=== PATIENT | male | born 1970 | race Caucasian/White ===

== ENCOUNTER 2017-03-23 11:50 | Day surgery (SDC) | payer OTHER ==
[2017-03-22 12:04] VITALS: BMI 28.7
--- NOTE | 2017-03-23 09:23 | HP ---
History & Physical Update - History History: No Change - Physical Physical: No Change - Assessment Assessment: No Change - Plan Plan: No Change (Incarcerated ventral hernia. Repair of incarcerated ventral hernia, laparoscopic/open with mesh. Procedure is explained , with risks, of recurrence, infection , postoperative pain, bleeding etc. All questions answered. Consent obtained.)
[2017-03-23] MEDS ORDERED: MIDAZOLAM HCL 2 MG/2 ML SINGLE DOSE VIAL ONE ×2 (14:06→14:35)
[2017-03-23] MEDS ORDERED: PROPOFOL 20 ML ONE (14:35)
[2017-03-23] MEDS ORDERED: ceFAZolin SODIUM 1 GM VIAL IVPB ONE (15:15)
[2017-03-23] MEDS ORDERED: DESFLURANE GAS 240 ML BOTTLE IH ONE (15:51)
[2017-03-23] MEDS ORDERED: ROCURONIUM BROMIDE 50 MG/5 ML VIAL ONE (15:54)
[2017-03-23] MEDS ORDERED: HYDROmorphone HCL/PF 1 MG/ML VIAL (FOR PYXIS CHARGING ONLY) ONE ×2 (16:14→16:54)
[2017-03-23] MEDS ORDERED: DEXAMETHASONE SOD PHOSPHATE 4 MG/1 ML VIAL ONE (16:34)
[2017-03-23] MEDS ORDERED: NEOSTIGMINE METHYLSULFATE 0.5 MG/ML - 10 ML MDV ONE (16:34)
[2017-03-23] MEDS ORDERED: GLYCOPYRROLATE 0.2 MG/1 ML VIAL ONE (16:34)
[2017-03-23] MEDS ORDERED: KETOROLAC TROMETHAMINE 30 MG/1 ML VIAL ONE (16:34)
[2017-03-23] MEDS ORDERED: BUPIVACAINE HCL/PF 0.5% (5MG/ML) 10 ML VIAL IJ ONE (16:45)
--- NOTE | 2017-03-23 16:57 | OP ---
Operative Note - Note: Operative Date: 03/23/17 Pre-Operative Diagnosis: Incarcerated ventral hernia. Operation: Laparoscopic repair of incarcerated ventral hernia with mesh. Findings: Large defect , on anterior abdominal wall with incarcerated omentum, A 6inchx 8 inch , ventralite with positioning system was used to repair. Post-Operative Diagnosis: Same as Pre-op Surgeon: Isaac Bullock Manager Of Merchandising: Roberta Mckeon Anesthesia: General Estimated Blood Loss (mls): 5 Operative Report Dictated: Yes
[2017-03-23] MEDS ORDERED: oxyCODONE HCL 5 MG TABLET PO PRN (17:03)
[2017-03-23] MEDS ORDERED: PROMETHAZINE HCL 25 MG/1 ML VIAL IVPUSH PRN (17:03)
[2017-03-23] MEDS ORDERED: LACTATED RINGERS SOLUTION 1,000 ML IV SCH (17:15)
[2017-03-23] MEDS ORDERED: oxyCODONE HCL 5 MG TABLET ONE (18:30)
[2017-03-23 19:37] VITALS: PULSE 68; TEMP 98
[2017-03-23 19:38] VITALS: BP 141/79
--- NOTE | 2017-03-24 13:58 | OP ---
DATE OF OPERATION: 03/23/2017 PREOPERATIVE DIAGNOSIS: Incarcerated ventral hernia. POSTOPERATIVE DIAGNOSIS: Incarcerated ventral hernia with incarceration of omentum. OPERATIVE PROCEDURE: Laparoscopic repair of incarcerated ventral hernia with mesh. SURGEON: Julio Bullock MD MONOGRAM MAKER: ROYCE Camp ANESTHESIA: General anesthesia. OPERATIVE DESCRIPTION: This 47-year-old male had a large abdominal defect admitting 4 fingers and with pain for the last few years. The patient was brought in for repair of the hernia. Risks, benefits and complications had been discussed with the patient. Consent obtained. The patient was brought to the operating room. He was given general anesthesia. A Spivey catheter was placed in the bladder which was removed right after the surgery. The patient was given a gram of Ancef. The abdomen painted and draped. A 10-mm incision was made in the midline in the subxiphoid area which was carried down through the skin, subcutaneous tissue, the linea alba and the peritoneum. A 10-12-mm laparoscopic trocar was inserted into the abdominal cavity through which the abdomen was inflated with carbon dioxide at 6 L per minute with maximum intra- abdominal pressure of 15 mmHg. Two stay sutures of 0 Vicryl were obtained to hold a trocar in place. Under direct vision, four 5-mm trocars were inserted into the peritoneal cavity, one each on either side of the right lower quadrant and one each on either side of the upper quadrants of the abdomen. It was noted that the patient had incarcerated omentum through his large defect in the center of the abdomen. The omentum was carefully reduced into the abdominal cavity without any bleeding. There was no small bowel within the incarcerated organ. A small bowel forceps was used to reduce the omentum into the abdominal cavity. With the Harmonic scalpel, the peritoneum around the edges of the defect was denuded to expose the abdominal wall circumferentially for about 2 cm from the edge. It was then decided that the patient would need an 8 x 6-inch mesh to cover the mesh with the proper overlay circumferentially. A Ventralight mesh with the positioning system was used to cover the defect. This was rolled and introduced through the 12-mm port and laid over the omentum. Then, the center tube for inflation was brought out through the center of the defect. Prior to this, the abdominal defect was primarily closed with 0 Vicryl sutures passed beneath the skin and using the needle passer passed through around the defect intra-abdominally and brought out again through the skin. Thus, the abdomen was primarily closed subcutaneously using 0 Vicryl sutures. Two such sutures were obtained, one above the defect and one below the defect to approximate the abdominal wall primarily. Then, through the needle passer which was passed through the center of the defect, the inflatable piece was grasped from beneath the abdominal cavity and brought out of the abdominal wall. This was then connected to the inflating syringe and the positioning system was inflated. The mesh was brought against the abdominal wall, the smooth surface against the visceral surface. The small catheter was then pulled up tight and placed against the abdominal skin to maintain the mesh against the abdominal wall. Once this was done, an AbsorbaTack was introduced through the 5-mm ports and this was fired circumferentially around the periphery of the mesh. Once this was done, another layer of AbsorbaTack was placed between the center and the periphery of the mesh again placed circumferentially. The mesh was thus securely placed against and attached to the abdominal wall. Once this was done, the inflatable device was deflated, positioning the clamp at the level of the umbilicus and grasping the inflatable device within the abdominal cavity and pulling it out through the 12- mm port. This was completely removed. The mesh remained adequately against the abdominal wall without any defect. The peritoneum was then brought over the intestine all the way down to the pelvis. The abdomen was then carefully deflated. The omentum was brought against the mesh and this was done under direct vision. The repair was adequate. The linea alba, the midline and the subxiphoid area was approximated with interrupted [id number] 2-0 Vicryl sutures. The skin was approximated with buried interrupted 4-0 Biosyn sutures. Marcaine 0.5% was injected into the wound. Dermabond was applied across the skin edges. The patient tolerated the procedure well, was extubated, and was returned to the recovery room in satisfactory and stable condition. The Spivey catheter was removed at the completion of the procedure. cc: MD JULIO Balderas M.D. [id number] [place]TD[place]
--- NOTE | 2017-03-27 10:46 | SURG ---
Surgery Industrial Controls Technician Note Industrial Controls Technician: Roberta Mckeon PA-C Date of Service: 03/23/17 Diagnosis: Incarcerated ventral hernia. Procedure: Laparoscopic repair of incarcerated ventral hernia with mesh. I was present for the entirety of the operative procedure. For further detail, please refer to operative report. Visit type - Case Type Case Type: Scheduled Admission
== END 2017-03-23 19:38 | disposition home or self-care (01) ==
LOC: JASU-SURG 11:50
PROVIDERS: ATTEND Specialist
PROC: 0WUF4JZ Supplement Abdominal Wall with Synthetic Substitute, Percutaneous Endoscopic Approach (ICD-10-PCS; principal; 2017-03-23 13:30)
DX: K43.6 Other and unspecified ventral hernia with obstruction, without gangrene (principal)
CPT/HCPCS: 94760

== ENCOUNTER 2017-03-28 18:10 | Emergency (ER) | payer OTHER ==
[2017-03-28 18:19] VITALS: BP 130/99; PULSE 99; TEMP 98; BMI 28.7
[2017-03-28] MEDS ORDERED: oxyCODONE HCL 5 MG TABLET PO ONE (20:09)
[2017-03-28] MEDS ORDERED: DOCUSATE SODIUM 100 MG CAPSULE (FP) PO ONE ×2 (20:09→21:08)
--- NOTE | 2017-03-28 20:28 | PDOC ---
History of Present Illness - General Chief Complaint: Pain Stated Complaint: POST OP PAIN Time Seen by Provider: 03/28/17 19:45 History Source: Patient Exam Limitations: No Limitations - History of Present Illness Travel History: No Initial Comments: 03/28/17 20:14 47yo Male patient w/ PmHx: Umbilical Hernia presents to ED c/o worsening abdominal pain s/p Umbilical Hernia correction with Mesh placement. Patient states he had surgery this past Sunday with Dr. Bullock (surgeon). He presents today with pain on deep breathing and at surgical sites. He is prescribed Ultram but is having no relief with its use. Patient denies fever, CP, Abd pain , n/v/d, rash, cough, diff breathing, back pain, or any other complaints at this time. Surgeon- Dr. Bullock Timing/Duration: reports: getting worse Quality: reports: moderate Abdominal Pain Onset Location: reports: generalized abdomen Pain Radiation: reports: no radiation Activities at Onset: reports: none Treatment Prior to Arrive: improves with: analgesics Aggravating Factors: improves with: None Alleviating Factors: improves with: None Past History - Travel Traveled outside of the country in the last 30 days: No Close contact w/someone who was outside of country & ill: No - Past Medical History Allergies/Adverse Reactions: Allergies Allergy/AdvReac Type Severity Reaction Status Date / Time No Known Allergies Allergy Verified 03/28/17 18:20 Home Medications: Ambulatory Orders Ranitidine HCl [Zantac] 150 mg PO DAILY 03/22/17 Acetaminophen [Tylenol] 325 mg PO QID #20 tablet MDD 4 03/23/17 Docusate Sodium [Colace -] 100 mg PO DAILY #7 capsule 03/23/17 Tramadol HCl 50 mg PO TID #20 tablet MDD 3 03/23/17 Docusate Sodium [Colace -] 100 mg PO DAILY #30 capsule 03/28/17 Oxycodone HCl 5 mg PO Q6H PRN #20 tablet MDD 4 TABS 03/28/17 Anemia: No Asthma: No Cancer: No Cardiac Disorders: No CVA: No COPD: No CHF: No Dementia: No Diabetes: No GI Disorders: Yes (abd hernia,) Disorders: No HTN: No Hypercholesterolemia: No Liver Disease: No Psychiatric Problems: Yes (anxeity) Seizures: No Thyroid Disease: No - Surgical History Abdominal Surgery: Yes (ABD HERNIA) - Psycho/Social/Smoking Cessation Hx Anxiety: No Suicidal Ideation: No Smoking History: Current some day smoker Have you smoked in the past 12 months: No Number of Cigarettes Smoked Daily: 2 Information on smoking cessation initiated: No 'Breaking Loose' booklet given: 03/22/17 Hx Alcohol Use: No Drug/Substance Use Hx: No Substance Use Type: None Review of Systems - Review of Systems Able to Perform ROS?: Yes Is the patient limited Divehi proficient: No Constitutional: No: Chills, Fever Respiratory: No: Cough, Shortness of Breath, Stridor, Wheezing, Hemoptysis Cardiac (ROS): No: Chest Pain, Edema, Palpitations, Syncope, Chest Tightness ABD/GI: Yes: Other (Generalized Abdominal Pain). No: Constipated, Diarrhea, Nausea, Poor Appetite, Poor Fluid Intake, Vomiting, Abdominal cramping : No: Dysuria, Flank Pain, Hematuria Musculoskeletal: No: Back Pain Integumentary: Yes: Other (9 Surgical incision <1 cm ). No: Bruising, Erythema , Pruritus, Rash Neurological: No: Headache All Other Systems: Reviewed and Negative *Physical Exam - Vital Signs Last Vital Signs Temp Pulse Resp BP Pulse Ox 98.0 F 99 H 20 130/99 99 03/28/17 18:16 03/28/17 18:16 03/28/17 18:16 03/28/17 18:16 03/28/17 18:16 - Physical Exam General Appearance: Yes: Nourished, Appropriately Dressed, Apparent Distress, Mild Distress. No: Moderate Distress, Severe Distress Neck: positive: Trachea midline, Supple. negative: Decreased range of motion, Stridor, Lymphadenopathy (R), Lymphadenopathy (L) Respiratory/Chest: positive: Lungs Clear, Normal Breath Sounds. negative: Chest Tender, Respiratory Distress, Accessory Muscle Use, Labored Respiration, Rapid RR, Stridor Cardiovascular: positive: Regular Rhythm, Regular Rate. negative: Edema, JVD Gastrointestinal/Abdominal: positive: Normal Bowel Sounds, Tender (Generalized Tenderness), Soft, Distended, Guarding, Tenderness. negative: Rebound Musculoskeletal: positive: Normal Inspection. negative: CVA Tenderness Extremity: positive: Normal Capillary Refill, Normal Inspection, Normal Range of Motion. negative: Pedal Edema, Swelling, Calf Tenderness, Erythema, Inflammation Integumentary: positive: Normal Color, Dry, Warm, Other (9 healing surgical incision wounds around abdomen. Mild erythema. No drainage or discharge noted.) Neurologic: positive: senior program analyst II-XII NML intact, Fully Oriented, Alert, Normal Mood/ Affect, Normal Response, Motor Strength /5 ED Treatment Course - RADIOLOGY Radiology Studies Ordered: Category Date Time Status ABDOMEN FLAT & UPRIGHT [RAD] Stat Radiology 03/28/17 20:09 Ordered Progress Note - Progress Note Progress Note: NORMAL X-RAY ABD: NO OBSTRUCTION, AB NORMAL AIR/FLUID LEVELS, OR FREE AIR IDENTIFIED. *DC/Admit/Observation/Transfer Diagnosis at time of Disposition: Pain Post surgical complication Qualifiers: Surgical complication system/body Area: skin Surgical complication type: other Qualified Code(s): L76.82 - Other postprocedural complications of skin and subcutaneous tissue - Discharge Dispostion Disposition: HOME Condition at time of disposition: Improved Admit: No - Prescriptions Prescriptions: Docusate Sodium [Colace -] 100 mg PO DAILY #30 capsule Oxycodone HCl 5 mg PO Q6H PRN #20 tablet MDD 4 TABS PRN Reason: Severe Pain - Patient Instructions Printed Discharge Instructions: DI for Abdominal Pain-Adult Additional Instructions: FOLLOW UP WITH YOUR SURGEON FOR ANY OTHER PAIN MANAGEMENT NEEDS. CALL TO SCHEDULE APPOINTMENT. TAKE YOUR MEDICATIONS PRESCRIBED. DO NOT DRIVE, DRINK ALCOHOL, OR OPERATE HEAVY MACHINERY WHILE TAKING OXYCODONE. Print Language: SLOVENIAN
--- NOTE | 2017-03-28 20:33 | PDOC ---
*Physical Exam - Vital Signs Last Vital Signs Temp Pulse Resp BP Pulse Ox 98.0 F 99 H 20 130/99 99 03/28/17 18:16 03/28/17 18:16 03/28/17 18:16 03/28/17 18:16 03/28/17 18:16 Medical Decision Making - Medical Decision Making 03/28/17 20:33 agree with care from SENIOR TELECOMMUNICATIONS ENGINEER Mike *DC/Admit/Observation/Transfer Diagnosis at time of Disposition: Post surgical complication, Pain - Discharge Dispostion Disposition: HOME - Prescriptions Prescriptions: Docusate Sodium [Colace -] 100 mg PO DAILY #30 capsule Oxycodone HCl 5 mg PO Q6H PRN #20 tablet MDD 4 TABS PRN Reason: Severe Pain - Referrals Referrals: Araceli Florez MD [Primary Care Provider] - - Patient Instructions Printed Discharge Instructions: DI for Abdominal Pain-Adult Additional Instructions: FOLLOW UP WITH YOUR SURGEON FOR ANY OTHER PAIN MANAGEMENT NEEDS. CALL TO SCHEDULE APPOINTMENT. TAKE YOUR MEDICATIONS PRESCRIBED. DO NOT DRIVE, DRINK ALCOHOL, OR OPERATE HEAVY MACHINERY WHILE TAKING OXYCODONE. Print Language: WALLISIAN
[2017-03-28] MEDS ORDERED: oxyCODONE HCL 5 MG TABLET ONE (21:08)
== END 2017-03-28 22:46 | disposition home or self-care (01) ==
LOC: JER 18:10
DX: G89.18 Other acute postprocedural pain (principal); F42.9 Obsessive-compulsive disorder, unspecified; F17.210 Nicotine dependence, cigarettes, uncomplicated
CPT/HCPCS: 74020-TC; 99281-25

== ENCOUNTER 2017-07-03 17:38 | Emergency (ER) | payer OTHER ==
[2017-07-03 17:43] VITALS: TEMP 98.2; BMI 30.1
[2017-07-03] MEDS ORDERED: SODIUM CHLORIDE 1,000 ML IV STA (18:30)
[2017-07-03] MEDS ORDERED: morphine CARPU-JECT 2 MG/1 ML DISP.SYRIN IVPUSH ONE (18:37)
--- NOTE | 2017-07-03 19:04 | PDOC ---
History of Present Illness - General History Source: Patient, Old Records Exam Limitations: No Limitations - History of Present Illness Initial Comments: 07/03/17 19:04 The patient is a 47 year old male, with a significant past medical history of anxiety and a recent umbilical hernia repair (03/23/2017), who presents to the emergency department with intermittent nonradiating RLQ pain for the past 3 months. The patient reports that he has been experiencing this intermittent RLQ abdominal pain since his surgery 3 months ago. The patient reports that he was helping a family member move furniture today when his pain flared up again, prompting him to come to the ED for evaluation. He reports that his pain is exacerbated when moving and is somewhat alleviated when lying down on his back. The patient denies fevers or chills. The patient denies shortness of breath or chest pain. The patient denies nausea, vomiting, diarrhea or constipation. Allergies: None reported. Past Surgical History: Tonsillectomy; Hernia Repair Social History: Current everyday smoker (patient reports ~3 cigarettes/day). Denies alcohol or drug use. Surgeon: Dr. Bullock <Lesli Amador - Last Filed: 07/03/17 19:08> <Aurora Veliz - Last Filed: 07/03/17 23:03> - General Chief Complaint: Pain Stated Complaint: abd pain POST OP PAIN Time Seen by Provider: 07/03/17 18:17 Past History <Lesli Amador - Last Filed: 07/03/17 19:08> - Past Medical History Anemia: No Asthma: No Cancer: No Cardiac Disorders: No CVA: No COPD: No CHF: No Dementia: No Diabetes: No GI Disorders: Yes (abd hernia,) Disorders: No HTN: No Hypercholesterolemia: No Liver Disease: No Psychiatric Problems: Yes (anxeity) Seizures: Yes Thyroid Disease: No - Surgical History Abdominal Surgery: Yes (ABD HERNIA) - Psycho/Social/Smoking Cessation Hx Anxiety: No Suicidal Ideation: No Smoking History: Current some day smoker Have you smoked in the past 12 months: Yes Number of Cigarettes Smoked Daily: 4 Information on smoking cessation initiated: Yes 'Breaking Loose' booklet given: 03/22/17 Hx Alcohol Use: No Drug/Substance Use Hx: No Substance Use Type: None <Aurora Veliz - Last Filed: 07/03/17 23:03> - Past Medical History Allergies/Adverse Reactions: Allergies Allergy/AdvReac Type Severity Reaction Status Date / Time No Known Allergies Allergy Verified 07/03/17 17:40 Home Medications: Ambulatory Orders Ranitidine HCl [Zantac] 150 mg PO DAILY 03/22/17 Acetaminophen [Tylenol] 325 mg PO QID #20 tablet MDD 4 03/23/17 Docusate Sodium [Colace -] 100 mg PO DAILY #7 capsule 03/23/17 Tramadol HCl 50 mg PO TID #20 tablet MDD 3 03/23/17 Docusate Sodium [Colace -] 100 mg PO DAILY #30 capsule 03/28/17 Oxycodone HCl 5 mg PO Q6H PRN #20 tablet MDD 4 TABS 03/28/17 Review of Systems - Review of Systems Able to Perform ROS?: Yes Comments:: 07/03/17 19:05 CONSTITUTIONAL: Absent: fever, no chills, no fatigue EYES: Absent: visual changes ENT: Absent: ear pain, no sore throat CARDIOVASCULAR: Absent: chest pain, no palpitations RESPIRATORY: Absent: cough, no SOB GI: Present: +RLQ abdominal pain. Absent: no nausea, no vomiting, no constipation, no diarrhea GENITOURINARY: Absent: dysuria, no frequency, no hematuria MUSCULOSKELETAL: Absent: back pain, no arthralgia, no myalgia SKIN: Absent: rash NEURO: Absent: headache <DelmarLesli Mijares - Last Filed: 07/03/17 19:08> *Physical Exam - Vital Signs Last Vital Signs Temp Pulse Resp BP Pulse Ox 98.2 F 95 H 18 161/91 100 07/03/17 17:41 07/03/17 17:41 07/03/17 17:41 07/03/17 17:41 07/03/17 17:41 - Physical Exam Comments: 07/03/17 19:05 GENERAL: Afebrile. Well-appearing, well-nourished. No apparent distress. HEENT: Normocephalic, atraumatic. PERRL, EOM intact. CARDIOVASCULAR: Normal S1, S2. Regular rate and rhythm. PULMONARY: Clear to auscultation bilaterally. ABDOMEN: Soft. Protuberant abdomen. Bowel sounds present. RLQ tenderness to deep palpation, worse with movement. EXTREMITIES: Normal ROM in all four extremities. No gross deformities. No edema. SKIN: Warm, dry. No rash. NEUROLOGICAL: No focal neurological deficits. <Lesli Amador - Last Filed: 07/03/17 19:08> - Vital Signs Last Vital Signs Temp Pulse Resp BP Pulse Ox 98.2 F 95 H 18 161/91 100 07/03/17 17:41 07/03/17 17:41 07/03/17 17:41 07/03/17 17:41 07/03/17 17:41 <Aurora Veliz - Last Filed: 07/03/17 23:03> ED Treatment Course - LABORATORY CBC & Chemistry Diagram: 07/03/17 19:22 07/03/17 19:22 <Aurora Veliz - Last Filed: 07/03/17 23:03> Medical Decision Making - Medical Decision Making 07/03/17 20:21 47-year-old male who has a umbilical hernia surgery on March 23 presents with intermittent chronic abdominal pain. He said that since the surgery. Whenever he does heavy lifting HE DEV Abdominal pain. He denies any nausea, vomiting, diarrhea, fever or chills or back pain Past medical history umbilical hernia repair, Mnire's disease He has slightly distended abdomen is soft, bowel sounds he had some tenderness to deep palpation in his right lower quadrant No fever, no chills,vomiting, no diarrhea. Has been able to have regular bowel movements Labs are unremarkable 07/03/17 22:58 Urinalysis was unremarkable There is no CAT scan evidence of acute right abdominal or pelvic pelvic pathology. Comparison. The CAT scan set of October 2016 shows interval repair of an umbilical hernia. Current exam, this is a small recurrent umbilical hernia. There is a subcutaneous hernia sac 1 cm rim-enhancing slightly thickened wall structure which could either be a chronic CO2, or hematoma versus small acute or chronic abscess. There is minimal to mild nonspecific soft tissue stranding within the hernia sac. There is no bowel herniation. Impression abdominal pain,, chronic,INTERMITTNET Plan follow-up with surgery <Aurora Veliz - Last Filed: 07/03/17 23:03> *DC/Admit/Observation/Transfer - Attestations Scribe Attestion: 07/03/17 19:05 Documentation prepared by Lesli Amador, acting as general medical practitioner for Aurora Veliz MD. <Lesli Amador - Last Filed: 07/03/17 19:08> <Aurora Veliz - Last Filed: 07/03/17 23:03> Diagnosis at time of Disposition: Abdominal pain Qualifiers: Abdominal location: right lower quadrant Qualified Code(s): R10.31 - Right lower quadrant pain - Discharge Dispostion Disposition: HOME Condition at time of disposition: Stable - Referrals Referrals: Buster Florez MD [Primary Care Provider] - Isaac Bullock MD [Staff Physician] - - Patient Instructions Printed Discharge Instructions: DI for Abdominal Pain-Adult Additional Instructions: PLEASE FOLLOW UP WITH DR BAEZA TO TAKE YOU RLAB WORK AND CT SCAN RESULTS
[2017-07-03 19:32] LABS: EOSINOPHIL 1.4 % (0-4.5); MCH 29.7 pg (25.7-33.7); MCHC 33.8 g/dl (32.0-35.9); MEAN CELL VOLUME 87.8 fl (80-96); MEAN PLT VOLUME 8.5 fl (7.5-11.1); NEUTROPHILS 59.3 % (42.8-82.8); PLATELET COUNT 232 K/MM3 (134-434); RDW 14.8 % (11.9-15.9)
[2017-07-03 20:02] LABS: ALBUMIN 4.9 g/dl (3.4-5.0); ANION GAP 6 (8-16); BILIRUBIN,TOTAL 0.3 mg/dL (0.2-1.0); CALCIUM 9.7 mg/dL (8.5-10.1); CO2 27 mmol/L (21-32); CREATININE 0.8 mg/dL (0.7-1.3); GLUCOSE,RANDOM 100 mg/dL (74-106); SGOT/AST 19 U/L (15-37); SGPT/ALT 47 U/L (12-78); TOT PROT 8.2 g/dl (6.4-8.2)
[2017-07-03 20:03] LABS: ALK PHOS 55 U/L (45-117)
[2017-07-03 21:07] LABS: URINE APPEARANCE CLEAR; URINE BILIRUBIN NEGATIVE (NEGATIVE); URINE BLOOD NEGATIVE (NEGATIVE); URINE COLOR COLORLESS; URINE GLUCOSE (UA) NEGATIVE (NEGATIVE); URINE KETONE NEGATIVE (NEGATIVE); URINE LEUK ESTERASE NEGATIVE (NEGATIVE); URINE NITRITE NEGATIVE (NEGATIVE); URINE PROTEIN NEGATIVE (NEGATIVE); URINE UROBILINOGEN NEGATIVE mg/dL (0.2-1.0)
[2017-07-03 23:21] VITALS: BP 150/86; PULSE 98
== END 2017-07-03 23:21 | disposition home or self-care (01) ==
LOC: JER 17:38
PROC: 3E0337Z Introduction of Electrolytic and Water Balance Substance into Peripheral Vein, Percutaneous Approach (ICD-10-PCS; principal; 2017-07-03)
DX: K42.9 Umbilical hernia without obstruction or gangrene (principal); X50.0XXA Overexertion from strenuous movement or load, initial encounter; Y93.E9 Activity, other interior property and clothing maintenance; Y92.89 Other specified places as the place of occurrence of the external cause
CPT/HCPCS: 36415; 74177-TC; 80053; 81003; 85025; 96360; 99282-25

== ENCOUNTER 2018-10-23 16:22 | Emergency (ER) | payer OTHER ==
[2018-10-23 16:30] VITALS: BP 133/65; PULSE 97; TEMP 98.2; BMI 30.1
--- NOTE | 2018-10-23 16:31 | PDOC ---
Rapid Medical Evaluation Medical Evaluation: Allergies Allergy/AdvReac Type Severity Reaction Status Date / Time No Known Allergies Allergy Verified 07/03/17 17:40 I have performed a brief in-person evaluation of this patient. The patient presents with a chief complaint of: Hx of chronic back pain ( herniated disc), c/o worsening lower back pain today. Denies fall, heavy lifting. Has pain management doctor (last got rx a month ago, has been unable to reach his doctor for medications). Denies saddle/groin paresthesia, bowel/ bladder incontinence Pertinent physical exam findings: Ambulatory in ED, appears in NAD The patient will proceed to the ED for further evaluation. 10/23/18 16:27
--- NOTE | 2018-10-23 17:02 | PDOC ---
History of Present Illness - General Chief Complaint: Back Pain Stated Complaint: BACK PAIN History Source: Patient Exam Limitations: No Limitations - History of Present Illness Initial Comments: 10/23/18 17:08 48 yr male with c/o diarrhea body aches cough started yesterday. Pt admits to not having percocet that he has taken for many years, usually takes 20-30mg daily. Pt has been attempting to contact his pain management doctor with no relief. Past History - Past Medical History Allergies/Adverse Reactions: Allergies Allergy/AdvReac Type Severity Reaction Status Date / Time No Known Allergies Allergy Verified 10/23/18 16:30 Home Medications: Ambulatory Orders Oxycodone HCl/Acetaminophen [Percocet 5-325 mg Tablet] 1 - 2 tab PO Q6H PRN #20 tablet MDD 15mg 10/23/18 Anemia: No Asthma: No Cancer: No Cardiac Disorders: No CVA: No COPD: No CHF: No DVT: No Dementia: No Diabetes: No GI Disorders: Yes (abd hernia,) Disorders: No HTN: No Hypercholesterolemia: No Liver Disease: No Psychiatric Problems: Yes (anxeity) Seizures: Yes Thyroid Disease: No Other medical history: herniated discs - Surgical History Abdominal Surgery: Yes (ABD HERNIA) - Suicide/Smoking/Psychosocial Hx Smoking History: Never smoked Have you smoked in the past 12 months: Yes Number of Cigarettes Smoked Daily: 4 Information on smoking cessation initiated: No 'Breaking Loose' booklet given: 03/22/17 Hx Alcohol Use: No Drug/Substance Use Hx: No Substance Use Type: None Trauma Specific PMHX - Complaint Specific PMHX Back Injury: Yes Review of Systems - Review of Systems Able to Perform ROS?: Yes Is the patient limited Kazakh proficient: No Constitutional: No: Symptoms Reported HEENTM: No: Symptoms Reported Respiratory: No: Symptoms reported Cardiac (ROS): No: Symptoms Reported ABD/GI: Yes: Symptoms Reported, Diarrhea, Nausea, Poor Appetite : No: Symptoms Reported Musculoskeletal: No: Symptoms Reported Integumentary: No: Symptoms Reported Neurological: No: Symptoms reported *Physical Exam - Vital Signs Last Vital Signs Temp Pulse Resp BP Pulse Ox 98.2 F 97 H 19 133/65 100 10/23/18 16:27 10/23/18 16:27 10/23/18 16:27 10/23/18 16:27 10/23/18 16:27 - Physical Exam General Appearance: Yes: Nourished, Appropriately Dressed HEENT: positive: EOMI, ANGÉLICA Respiratory/Chest: positive: Lungs Clear, Normal Breath Sounds. negative: Chest Tender Cardiovascular: positive: Regular Rhythm, Tachycardia Musculoskeletal: positive: Normal Inspection Extremity: positive: Normal Capillary Refill, Normal Inspection, Normal Range of Motion. negative: Tender Integumentary: positive: Normal Color, Dry, Warm, Other (skin dry ). negative: Diaphoresis, Rash, Swelling Neurologic: positive: Fully Oriented, Alert, Normal Mood/Affect, Normal Response , Motor Strength 5/5 Moderate Sedation - Procedure Monitoring Vital Signs: Procedure Monitoring Vital Signs Temperature 98.2 F 10/23/18 16:27 Pulse Rate 97 H 10/23/18 16:27 Respiratory Rate 19 10/23/18 16:27 Blood Pressure 133/65 10/23/18 16:27 O2 Sat by Pulse Oximetry (%) 100 10/23/18 16:27 Medical Decision Making - Medical Decision Making 10/23/18 17:17 cc: pt c/o diarrhea body aches cough states he ran out of percocet unable to get prescription filled I-Stop evaluated pt last given prescription one month ago pt admits to taking 20-30mg daily of percocet x20 years will give one now short term refill to prevent acute withdrawl pt agrees with plan understands he must follow with his pain med doctor pt stable for discharge steady gait. *DC/Admit/Observation/Transfer Diagnosis at time of Disposition: Encounter for medication refill - Discharge Dispostion Disposition: HOME Condition at time of disposition: Good - Prescriptions Prescriptions: Oxycodone HCl/Acetaminophen [Percocet 5-325 mg Tablet] 1 - 2 tab PO Q6H PRN #20 tablet MDD 15mg PRN Reason: Severe Pain - Referrals - Patient Instructions Additional Instructions: please call your pain management doctor to get your medication please do not take more than prescribed Return if any worsening symptoms - Post Discharge Activity
== END 2018-10-23 17:25 | disposition home or self-care (01) ==
LOC: JERFT 16:22
DX: M54.5 Low back pain (principal); Z76.0 Encounter for issue of repeat prescription
CPT/HCPCS: 99281-25

== ENCOUNTER 2019-06-30 22:53 | Emergency (ER) | payer OTHER ==
[2019-06-30 23:01] VITALS: BP 127/90; PULSE 103; TEMP 98.1; BMI 30.1
--- NOTE | 2019-06-30 23:36 | PDOC ---
History of Present Illness - General Chief Complaint: Seizure Stated Complaint: SEIZURE EVALUATION Time Seen by Provider: 06/30/19 23:25 - History of Present Illness Initial Comments: 06/30/19 23:42 49m with pmh of Benzodiazepine withdrawal seizures coming to the Ed as he had a seizure on the 8 days ago while on a cruise in [place], woke up with a small tongue laceration and bruises, was given a number of diazepam pills by a physician in [place], and came here for a refill. 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 He is concerned about seizing while in a potentially dangerous situation. Past History - Past Medical History Allergies/Adverse Reactions: Allergies Allergy/AdvReac Type Severity Reaction Status Date / Time No Known Allergies Allergy Verified 10/23/18 16:30 Home Medications: Ambulatory Orders Oxycodone HCl/Acetaminophen [Percocet 5-325 mg Tablet] 1 - 2 tab PO Q6H PRN #20 tablet MDD 15mg 10/23/18 Anemia: No Asthma: No Cancer: No Cardiac Disorders: No CVA: No COPD: No CHF: No DVT: No Dementia: No Diabetes: No GI Disorders: Yes (abd hernia,) Disorders: No HTN: No Hypercholesterolemia: No Liver Disease: No Psychiatric Problems: Yes (anxeity) Seizures: Yes Thyroid Disease: No - Surgical History Abdominal Surgery: Yes (ABD HERNIA) - Suicide/Smoking/Psychosocial Hx Smoking History: Never smoked Have you smoked in the past 12 months: No Number of Cigarettes Smoked Daily: 4 Information on smoking cessation initiated: No 'Breaking Loose' booklet given: 03/22/17 Hx Alcohol Use: No Drug/Substance Use Hx: No Substance Use Type: None Review of Systems - Review of Systems Able to Perform ROS?: Yes Is the patient limited Kazakh proficient: No Constitutional: No: Symptoms Reported HEENTM: No: Symptoms Reported Respiratory: No: Symptoms reported Cardiac (ROS): No: Symptoms Reported ABD/GI: No: Symptoms Reported Neurological: No: Symptoms reported All Other Systems: Reviewed and Negative *Physical Exam - Vital Signs Last Vital Signs Temp Pulse Resp BP Pulse Ox 98.1 F 103 H 16 127/90 100 06/30/19 22:58 06/30/19 22:58 06/30/19 22:58 06/30/19 22:58 06/30/19 22:58 - Physical Exam General Appearance: Yes: Nourished, Appropriately Dressed. No: Apparent Distress HEENT: positive: EOMI, ANGÉLICA, Normal ENT Inspection Respiratory/Chest: positive: Lungs Clear, Normal Breath Sounds. negative: Chest Tender, Respiratory Distress Cardiovascular: positive: Regular Rhythm, Regular Rate, S1, S2 Gastrointestinal/Abdominal: positive: Normal Bowel Sounds, Flat. negative: Tender Neurologic: positive: Fully Oriented, Alert, Normal Mood/Affect, Normal Response Medical Decision Making - Medical Decision Making 06/30/19 23:50 Dr. Zuniga in the Ed, will see the patient. Patient understand that he may only received a small amount of benzo from us. 07/01/19 00:13 Ok to discharge *DC/Admit/Observation/Transfer Diagnosis at time of Disposition: Benzodiazepine dependence, Seizure - Discharge Dispostion Disposition: HOME Condition at time of disposition: Improved Decision to Admit order: No - Referrals Referrals: Venkat Robert MD [Primary Care Provider] - - Patient Instructions Printed Discharge Instructions: DI for Psychogenic Nonepileptic Seizures Additional Instructions: Follow up with your primary care physician within 2-3 days. Come back to the emergency department for any new, worsening or concerning symptom. - Post Discharge Activity
--- NOTE | 2019-06-30 23:50 | PDOC ---
Documentation entered by Vandana Barcenas SCRIBE, acting as scribe for Aurora Veliz MD. Aurora Veliz MD: This documentation has been prepared by the Swapna rosado Brenda, SCRIBE, under my direction and personally reviewed by me in its entirety. I confirm that the documentation accurately reflects all work, treatment, procedures, and medical decision making performed by me. Attending Attestation - Resident Resident Name: Robert Torres - ED Attending Attestation I have performed the following: I have examined & evaluated the patient, The case was reviewed & discussed with the resident, I agree w/resident's findings & plan, Exceptions are as noted - HPI HPI: 06/30/19 23:51 49-year-old male with a history of benzo withdrawal seizures. States he was on a cruise June 22 and had a seizure. He was given benzodiazepines at that time and now presents because he has run out of his benzodiazepines. no further seizure activity - Physicial Exam PE: 06/30/19 23:52 wnwd 49 yo male in no acute focal deficits head ncat eyes marcio eomi neck supple lungs cta b/l cvs [id number] abd nontender skin awrm ad dry neuro axox3,ambulatory, no focal neuro deficitd - Medical Decision Making 07/01/19 00:15 Dr. Nogueira (neuro) saw the patient emergency department and he was prescribed a Valium and will follow-up with his physician
--- NOTE | 2019-07-01 00:08 | CON.NEURO ---
Consult Consult Specialty:: NEUROLOGY-[facility] Reason for Consultation:: Seizure 8 days ago - History of Present Illness History of Present Illness: 49m with pmh of Benzodiazepine withdrawal seizures coming to the Ed as he had a seizure on the 8 days ago while on a cruise in [place], woke up with a small tongue laceration and bruises, was given a number of diazepam pills by a physician in [place], and came here for a refill. 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 He is concerned about seizing while in a potentially dangerous situation. Now asking for valium to cover him for his next trip out until he can see his PMd on Jul.08. - Alcohol/Substance Use Hx Alcohol Use: No - Smoking History Smoking history: Never smoked Have you smoked in the past 12 months: No Aproximately how many cigarettes per day: 4 Home Medications - Allergies Allergies/Adverse Reactions: Allergies Allergy/AdvReac Type Severity Reaction Status Date / Time No Known Allergies Allergy Verified 10/23/18 16:30 - Home Medications Home Medications: Ambulatory Orders Oxycodone HCl/Acetaminophen [Percocet 5-325 mg Tablet] 1 - 2 tab PO Q6H PRN #20 tablet MDD 15mg 10/23/18 Physical Exam-Neuro Vital Signs: Vital Signs Temperature 98.1 F 06/30/19 22:58 Pulse Rate 103 H 06/30/19 22:58 Respiratory Rate 16 06/30/19 22:58 Blood Pressure 127/90 06/30/19 22:58 O2 Sat by Pulse Oximetry (%) 100 06/30/19 22:58 - Neuro Exam DTR's: 2+ Left Bicep, 2+ Right Bicep, 2+ Left Tricep, 2+ Right Tricep, 2+ Left Brachioradialis, 2+ Right Brachioradialis, 2+ Left Achilles, 2+ Right Achilles Babinski: Absent Motor Strength: 5/5: Left Arm, Right Arm, Left Leg, Right Leg Gait: Normal Assessment/Plan s/p benzosdiazepine sz.8 days ago. No indication for admission. Would d/c with a few days of valium 5mg tid. He will f/u with his PMD.
== END 2019-07-01 00:44 | disposition home or self-care (01) ==
LOC: JER 22:53
DX: G40.509 Epileptic seizures related to external causes, not intractable, without status epilepticus (principal); F13.20 Sedative, hypnotic or anxiolytic dependence, uncomplicated
CPT/HCPCS: 99282-25

== ENCOUNTER 2019-09-24 01:40 | Emergency (ER) | payer OTHER ==
--- NOTE | 2019-09-24 03:11 | PDOC ---
History of Present Illness - General Chief Complaint: Weakness Stated Complaint: GENERALIZED WEAKNESS Time Seen by Provider: 09/24/19 03:10 History Source: Patient Exam Limitations: Other (poor historian, refusing further work-up) - History of Present Illness Initial Comments: Pt is a 49 yo M, with PMH of benzodiazepine withdrawal seizures, chronic back pain, incarcerated vental hernia repair, who is presenting with vague complaints of "my body hurts all over" and exacerbation of his chronic back pain. 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 Pt states he attempted to take his normal PO home pain meds for his lower back pain with minimal relief. Pt states he had a fever of 102 (oral) at home, which resolved after 650 mg PO tylenol at approximately 6 pm. Pt denies any recent headache, vision changes, syncope, chest pain, palpitations, SOB, nausea/vomiting, abdominal pain, urinary symptoms , diarrhea/constipation, or leg swelling. Allergies: NKDA PCP: Dr. Robert Social: Pt denies any cigarette, alcohol, or drug use. Pt endorses prior THC use , and was frequently taking benzodiazepine for anxiety (now on valium). Pt denies any recent travel or sick contacts. Surgical: incarcerated ventral hernia repair. Family: no relevant history. 09/24/19 04:59 Past History - Travel Traveled outside of the country in the last 30 days: No Close contact w/someone who was outside of country & ill: No - Past Medical History Allergies/Adverse Reactions: Allergies Allergy/AdvReac Type Severity Reaction Status Date / Time No Known Allergies Allergy Verified 09/24/19 03:15 Home Medications: Ambulatory Orders Oxycodone HCl/Acetaminophen [Percocet 5-325 mg Tablet] 1 - 2 tab PO Q6H PRN #20 tablet MDD 15mg 10/23/18 Diazepam [Valium] 5 mg PO Q8H PRN #9 tablet MDD 3 tabs 07/01/19 Anemia: No Asthma: No Cancer: No Cardiac Disorders: No CVA: No COPD: No CHF: No DVT: No Dementia: No Diabetes: No GI Disorders: Yes (abd hernia,) Disorders: No HTN: No Hypercholesterolemia: No Liver Disease: No Psychiatric Problems: Yes (anxeity) Seizures: Yes Thyroid Disease: No - Surgical History Abdominal Surgery: Yes (ABD HERNIA) - Psycho Social/Smoking Cessation Hx Smoking History: Never smoked Have you smoked in the past 12 months: No Number of Cigarettes Smoked Daily: 4 'Breaking Loose' booklet given: 03/22/17 Hx Alcohol Use: No Drug/Substance Use Hx: No Substance Use Type: None Review of Systems - Review of Systems Able to Perform ROS?: No Comments:: see HPI, limited cooperation 09/24/19 05:03 Is the patient limited Lithuanian proficient: Yes *Physical Exam - Physical Exam Comments: Vitals stable, pt afebrile. Pt in NAD, ambulatory in ED without assistance. Normal body habitus. Pt alert and oriented x3. hospitalist medical director generally intact, muscular strength and sensation intact. No midline spinal tenderness, step-offs, or crepitus. Head normocephalic, atraumatic. Eyes PERRLA, EOMI. Oropharynx without erythema or exudates, no LAD b/l. No nasal congestion. Hearing intact. Clear heart sounds, S1/S2, no JVD, b/l pedal edema, or heart murmur. Clear lung sounds, no respiratory distress, wheezes, crackles, or accessory muscle use. No abdominal or CVA tenderness to palpation, no rebound, no guarding. Abdomen soft, non-distended, and with normoactive bowel sounds. Skin without jaundice or rash. Skin not warm to touch. 09/24/19 05:03 Medical Decision Making - Medical Decision Making Pt provided minimal history, and when offered labwork to evaluate for electrolyte imbalances, rhabdo, influenza, ECG; pt refused all labwork saying " I am afraid of needles. I will go to Dr. Robert and come back here if I get worse". PT A/O x3 and vitals stable, but with odd behavior. Note: The patient insists on leaving the emergency dept and is signing out against medical advice. The patient understands the risks and complications that may result from the refusal of medical care and admission which includes and permanent disability. The patient has the mental capacity of understanding the risks of refusing care and is capable of making an informed decision. The patient was instructed to return to the emergency department should he change his mind regarding medical care or should his condition worsen. The patient signed the Against Medical Advice form. 09/24/19 05:04 Discharge - Discharge Information Problems reviewed: Yes Clinical Impression/Diagnosis: Generalized body aches Condition: Good Disposition: AGAINST MEDICAL ADVICE - Admission No - Follow up/Referral Referrals: Venkat Robert MD [Primary Care Provider] - - Patient Discharge Instructions Patient Printed Discharge Instructions: DI for Fatigue Additional Instructions: You were seen in the ER today for generalized body aches. You did not wish to stay for labs. Please follow-up with your primary care doctor within 1-2 days to discuss your visit and make sure your symptoms have improved. Please return to the ER if you have any worsening pain, development of fevers or chills, loss of consciousness, inability to tolerate food or fluids, or any other concerns. - Post Discharge Activity
[2019-09-24 03:15] VITALS: BMI 28.7
[2019-09-24 03:21] VITALS: BP 123/82; PULSE 84; TEMP 97.3
[2019-09-24] MEDS ORDERED: IBUPROFEN 400 MG TABLET (FP) PO ONE (03:29)
--- NOTE | 2019-09-24 03:41 | PDOC ---
Attending Attestation - Resident Resident Name: Annabelle Noble - ED Attending Attestation I have performed the following: I have examined & evaluated the patient, The case was reviewed & discussed with the resident, I agree w/resident's findings & plan - HPI HPI: 09/24/19 03:41 see resident hpi - Physicial Exam PE: 09/24/19 03:41 agree with resident exam - Medical Decision Making 09/24/19 03:41 49-year-old male requesting pain medication for backache Patient refusing full medical evaluation He will be signing out AGAINST MEDICAL ADVICE Patient ambulating without difficulty, alert and oriented x4
== END 2019-09-24 04:15 | disposition left against medical advice (07) ==
LOC: JER 01:40
DX: R53.1 Weakness (principal); G89.29 Other chronic pain; M54.5 Low back pain; G40.89 Other seizures; F41.9 Anxiety disorder, unspecified; K46.9 Unspecified abdominal hernia without obstruction or gangrene; Z72.0 Tobacco use
CPT/HCPCS: 99282-25

== ENCOUNTER 2024-06-09 14:59 | Emergency (ER) | payer OTHER ==
[2024-06-09 15:41] VITALS: BP 122/82; PULSE 76; RESP 19; TEMP 97.9; BMI 26.4
[2024-06-09] MEDS ORDERED: diazePAM 5 MG TABLET ONE (17:05)
[2024-06-09] MEDS: diazePAM 5 MG TABLET PO ONE (17:13)
[2024-06-09] MEDS ORDERED: diphenhydrAMINE HCL 25 MG CAPSULE (FP) PO ONE (17:42)
== END 2024-06-09 17:21 | disposition home or self-care (01) ==
LOC: JERFT 14:59
DX: M54.9 Dorsalgia, unspecified (principal); Z76.0 Encounter for issue of repeat prescription
CPT/HCPCS: 99283-25

== ENCOUNTER 2024-06-17 13:23 | Emergency (ER) | payer OTHER ==
[2024-06-17 14:03] VITALS: BP 125/85; PULSE 91; RESP 18; TEMP 97.9; BMI 28.1
[2024-06-17] MEDS ORDERED: KETOROLAC TROMETHAMINE 30 MG/1 ML VIAL ONE (14:59)
[2024-06-17] MEDS: KETOROLAC TROMETHAMINE 30 MG/1 ML VIAL IM ONE (15:08)
== END 2024-06-17 18:12 | disposition home or self-care (01) ==
LOC: JERFT 13:23
DX: S50.02XA Contusion of left elbow, initial encounter (principal); S00.03XA Contusion of scalp, initial encounter; R42 Dizziness and giddiness; W01.198A Fall on same level from slipping, tripping and stumbling with subsequent striking against other object, initial encounter
CPT/HCPCS: 70450-TC; 72100-TC-FY; 73070-TC-RT-FY; 99284-25